=== PATIENT | male | born 1945 | race Asian ===

== ENCOUNTER 2017-08-29 09:18 | Inpatient (IN) | payer OTHER ==
[~2017-08-29] VITALS: Ht 167.6 cm; Wt 91.6 kg
[2017-08-29 09:18] VITALS: BP_SYST 166
[2017-08-29] MEDS ORDERED: NACL 0.9% 1,000 ML IV ONE (09:21)
[2017-08-29] MEDS ORDERED: NS 1000 ML BAG IV ONE (09:30)
[2017-08-29] MEDS ORDERED: LACTULOSE 20 GM/30 ML UDC PO ONE (09:30)
[2017-08-29 10:08] LABS: BILIRUBIN,URINE NEGATIVE (NEGATIVE); BLOOD, URINE NEGATIVE (NEGATIVE); CLARITY/URINE CLEAR (CLEAR); COLOR,URINE YELLOW (YELLOW); GLUCOSE,URINE NEGATIVE (NEGATIVE); KETONES,URINE NEGATIVE (NEGATIVE); LEUKOCYTE ESTERASE ,URINE NEGATIVE (NEGATIVE); NITRITE, URINE NEGATIVE (NEGATIVE); PROTEIN URINE TRACE (NEGATIVE); UROBILINOGEN,URINE 0.2 (0.2-1.0)
[2017-08-29 10:16] LABS: EOSINOPHILS # (AUTO) 0.4 K/uL (0.0-0.4); EOSINOPHILS % (AUTO) 6.2 % (0.0-4.0); HEMATOCRIT 40.9 % (36-54); HEMOGLOBIN 13.9 g/dL (14.0-18.0); LYMPHOCYTES # (AUTO) 1.8 K/uL (1.0-5.5); LYMPHOCYTES % (AUTO) 25.1 % (20.5-51.5); MEAN CORPUSCULAR HEMOGLOBIN 33 pg (27-31); MEAN CORPUSCULAR HGB CONC 34 % (32-36); MEAN CORPUSCULAR VOLUME 97 fL (79.0-98.0); MONOCYTES # (AUTO) 0.6 K/uL (0.0-1.0); MONOCYTES % (AUTO) 8.1 % (1.7-9.3); PLATELET COUNT (AUTO) 141 K/uL (130-430); RED BLOOD CELL COUNT(AUTO) 4.21 MIL/uL (4.2-6.2); RED CELL DISTRIBUTION WIDTH 13.2 % (9.0-15.0)
[2017-08-29 10:20] LABS: BARBITURATE, URINE NEGATIVE (NEG <=200); BENZODIAZEPINE, URINE NEGATIVE (NEG <=150); CANNABINOID, URINE NEGATIVE (NEG <=50); COCAINE, URINE NEGATIVE (NEG <=150); METHAMPHETAMINES SCREEN,URINE NEGATIVE (NEG <=500); OPIATE, URINE NEGATIVE (NEG <=100); PHENCYCLIDINE SCREEN,URINE NEGATIVE (NEG <=25); UR TRICYCLIC ANTIDEPRESSANTS NEGATIVE (NEG <=300); URINE AMPHETAMINE NEGATIVE (NEG <=500); URINE METHADONE NEGATIVE (NEG <=200); URINE OXYCODONE SCREEN NEGATIVE (NEG <=100); URINE PROPOXYPHENE SCREEN NEGATIVE (NEG <=300)
[2017-08-29 10:22] LABS: BASOPHILS % (AUTO) 0.5 % (0.0-2.0); NEUTROPHILS # (AUTO) 4.2 K/uL (1.8-7.7); NEUTROPHILS % (AUTO) 60.1 % (40.0-70.0)
[2017-08-29 10:23] LABS: ANION GAP 8 (5-15); CALCIUM 8.9 mg/dL (8.4-11.0); CHLORIDE 107 mmol/L (98-107); CREATININE 0.84 mg/dL (0.55-1.30); GLUCOSE 203 mg/dL (70-99); POTASSIUM 4.8 mmol/L (3.5-5.1); SODIUM SERUM 138 mmol/L (136-145); UREA NITROGEN, BLOOD 20 mg/dL (8-21)
[2017-08-29 10:24] LABS: INR 1.1 (0.80-1.20); PROTHROMBIN TIME 10.9 SECS (9.5-12.5)
[2017-08-29 10:27] LABS: ALANINE AMINOTRANSFERASE 36 U/L (12-78); ALBUMIN 3.3 g/dL (3.4-4.8); AMYLASE 68 U/L (0-100); ASPARTATE AMINOTRANSFERASE 26 U/L (10-37); LIPASE 91 U/L (73-393); TOTAL BILIRUBIN 1.3 mg/dL (0.0-1.0)
[2017-08-29 10:28] LABS: ALCOHOL, BLOOD < 3 mg/dL (<10)
[2017-08-29] MEDS ORDERED: TACR1CAP PO (11:56)
[2017-08-29] MEDS ORDERED: LIP10 PO (11:56)
[2017-08-29] MEDS ORDERED: SSREG SUBCUT (11:56)
[2017-08-29] MEDS ORDERED: 0.45% NACL 1,000 ML IV ONE (12:15)
[2017-08-29 12:51] VITALS: BP_SYST 148
[2017-08-29] MEDS ORDERED: ATORVASTATIN 10 MG TABLET PO ONE (13:45)
[2017-08-29] MEDS ORDERED: ONDANSETRON HCL 4 MG/2 ML VIAL IVP PRN (13:45)
[2017-08-29] MEDS ORDERED: ACETAMINOPHEN 325 MG TABLET PO PRN (13:45)
[2017-08-29] MEDS ORDERED: DEXTROSE 50%-WATER 50 ML DISP.SYRIN IVP PRN ×2 (14:00)
[2017-08-29] MEDS ORDERED: ENOXAPARIN SODIUM 40 MG/0.4 ML SYRINGE SUBCUT ONE (14:00)
[2017-08-29] MEDS ORDERED: GLUCOSE 15 GM GEL (in 37.5 GM TUBE) PO PRN ×2 (14:00)
[2017-08-29] MEDS: TACROLIMUS ANHYDROUS 1 MG CAPSULE (PROGRAF) PO SCH ×2 (14:20→20:16)
[2017-08-29 15:55] VITALS: BP_SYST 147
[2017-08-29] MEDS: LACTULOSE 20 GM/30 ML UDC PO SCH ×2 (16:34→20:16)
[2017-08-29] MEDS: INSULIN REGULAR, HUMAN 100 UNITS/ML, 10 ML VIAL (novoLIN R) SUBCUT PRN ×2 (17:24→20:21)
[2017-08-29 20:00] VITALS: BP_SYST 117
[2017-08-30 00:55] VITALS: BP_SYST 145
[2017-08-30] MEDS: INSULIN REGULAR, HUMAN 100 UNITS/ML, 10 ML VIAL (novoLIN R) SUBCUT PRN (06:02)
[2017-08-30 07:29] LABS: BASOPHILS # (AUTO) 0.3 K/uL (0.0-0.2); BASOPHILS % (AUTO) 4.3 % (0.0-2.0); EOSINOPHILS # (AUTO) 0.5 K/uL (0.0-0.4); HEMATOCRIT 37.7 % (36-54); LYMPHOCYTES # (AUTO) 1.1 K/uL (1.0-5.5); LYMPHOCYTES % (AUTO) 16.9 % (20.5-51.5); MEAN CORPUSCULAR HEMOGLOBIN 34 pg (27-31); MEAN CORPUSCULAR HGB CONC 35 % (32-36); MEAN CORPUSCULAR VOLUME 97 fL (79.0-98.0); MONOCYTES # (AUTO) 0.7 K/uL (0.0-1.0); MONOCYTES % (AUTO) 11.5 % (1.7-9.3); NEUTROPHILS # (AUTO) 3.9 K/uL (1.8-7.7); NEUTROPHILS % (AUTO) 60.3 % (40.0-70.0); PLATELET COUNT (AUTO) 133 K/uL (130-430); RED BLOOD CELL COUNT(AUTO) 3.89 MIL/uL (4.2-6.2); RED CELL DISTRIBUTION WIDTH 13.3 % (9.0-15.0); WHITE BLOOD COUNT (AUTO) 6.5 K/uL (4.8-10.8)
[2017-08-30 07:50] LABS: ALANINE AMINOTRANSFERASE 39 U/L (12-78); ALBUMIN 3.1 g/dL (3.4-4.8); ANION GAP 9 (5-15); ASPARTATE AMINOTRANSFERASE 30 U/L (10-37); CALCIUM 8.7 mg/dL (8.4-11.0); CHLORIDE 107 mmol/L (98-107); CREATININE 0.95 mg/dL (0.55-1.30); GLUCOSE 139 mg/dL (70-99); POTASSIUM 4.1 mmol/L (3.5-5.1); SODIUM SERUM 139 mmol/L (136-145); TOTAL BILIRUBIN 1.8 mg/dL (0.0-1.0); UREA NITROGEN, BLOOD 25 mg/dL (8-21)
[2017-08-30 07:58] VITALS: BP_SYST 140
[2017-08-30] MEDS ORDERED: LACT10SO66 PO (08:25)
[2017-08-30] MEDS ORDERED: ENOXAPARIN SODIUM 40 MG/0.4 ML SYRINGE SUBCUT SCH (09:00)
[2017-08-30] MEDS ORDERED: RIFAXIMIN 550 MG TABLET PO SCH (09:00)
[2017-08-30] MEDS ORDERED: ATORVASTATIN 10 MG TABLET PO SCH (09:00)
[2017-08-30] MEDS: LACTULOSE 20 GM/30 ML UDC PO SCH (09:19)
[2017-08-30] MEDS: TACROLIMUS ANHYDROUS 1 MG CAPSULE (PROGRAF) PO SCH (09:21)
[2017-08-30 09:43] VITALS: BP_SYST 132
== END 2017-08-30 10:10 | disposition home or self-care (01) | DRG 442 ==
LOC: SED 09:18 → STU 12:04
PROVIDERS: ADMIT Internal Medicine; ATTEND Internal Medicine
DX: K72.90 Hepatic failure, unspecified without coma (principal); B19.10 Unspecified viral hepatitis B without hepatic coma; Z94.4 Liver transplant status; E11.9 Type 2 diabetes mellitus without complications; K74.60 Unspecified cirrhosis of liver; I10 Essential (primary) hypertension; E66.9 Obesity, unspecified; Z79.899 Other long term (current) drug therapy; Z82.49 Family history of ischemic heart disease and other diseases of the circulatory system; Z83.79 Family history of other diseases of the digestive system; Z68.32 Body mass index [BMI] 32.0-32.9, adult
CPT/HCPCS: 36415; 70450-TC; 71045; 80053; 80307; 81003; 82140-TC; 82150-TC; 82550-TC; 82962; 83605; 83690-TC; 84484; 85025; 85610-TC; 85730-TC; 87040-TC; 87086; 93005; 96360; 96361; 99285; G0482; J1650; J1815; J7030; J7507